=== PATIENT | female | born 1935 | race Caucasian/White ===

== ENCOUNTER 2022-08-16 09:53 | Outpatient (CLI) | payer MEDICARE, BC, SELFPAY | END 2022-08-16 09:54 | disposition home or self-care (01) | PROVIDERS: PCP Internal Medicine; Visit Provider Physician Assistant Surgical | DX: I87.311 Chronic venous hypertension (idiopathic) with ulcer of right lower extremity (principal); L97.312 Non-pressure chronic ulcer of right ankle with fat layer exposed; L97.812 Non-pressure chronic ulcer of other part of right lower leg with fat layer exposed; L89.153 Pressure ulcer of sacral region, stage 3; S80.211A Abrasion, right knee, initial encounter | CPT/HCPCS: 11042; 11045; 99204 ==

== ENCOUNTER 2022-08-30 08:31 | Outpatient (CLI) | payer MEDICARE, BC, SELFPAY | END 2022-08-30 08:32 | disposition home or self-care (01) | LOC: WOUND 08:31 | PROVIDERS: PCP Internal Medicine; Visit Provider Physician Assistant Surgical | DX: I87.311 Chronic venous hypertension (idiopathic) with ulcer of right lower extremity (principal); L97.312 Non-pressure chronic ulcer of right ankle with fat layer exposed; L97.812 Non-pressure chronic ulcer of other part of right lower leg with fat layer exposed; S80.211A Abrasion, right knee, initial encounter; L89.153 Pressure ulcer of sacral region, stage 3 | CPT/HCPCS: 11042; 11045 ==

== ENCOUNTER 2022-09-13 08:30 | Outpatient (CLI) | payer MEDICARE, BC, SELFPAY | END 2022-09-13 08:31 | disposition home or self-care (01) | LOC: WOUND 08:30 | PROVIDERS: PCP Internal Medicine; Visit Provider Physician Assistant Surgical | DX: I87.311 Chronic venous hypertension (idiopathic) with ulcer of right lower extremity (principal); L97.312 Non-pressure chronic ulcer of right ankle with fat layer exposed; L97.812 Non-pressure chronic ulcer of other part of right lower leg with fat layer exposed; L89.513 Pressure ulcer of right ankle, stage 3 | CPT/HCPCS: 11042 ==

== ENCOUNTER 2022-10-17 10:00 | Outpatient (CLI) | payer MEDICARE, BC, SELFPAY | END 2022-10-17 10:01 | disposition home or self-care (01) | LOC: WOUND 10:00 | PROVIDERS: PCP Internal Medicine; Visit Provider Nurse Practitioner Family | DX: I87.311 Chronic venous hypertension (idiopathic) with ulcer of right lower extremity (principal); L97.816 Non-pressure chronic ulcer of other part of right lower leg with bone involvement without evidence of necrosis; L89.153 Pressure ulcer of sacral region, stage 3; I70.234 Atherosclerosis of native arteries of right leg with ulceration of heel and midfoot; L89.894 Pressure ulcer of other site, stage 4; R54 Age-related physical debility | CPT/HCPCS: 87070; 87186; 97597; 97598 ==